=== PATIENT | male | born 1960 | race Caucasian/White ===

== ENCOUNTER 2021-03-03 09:52 | Emergency (ER) | payer BC, SELFPAY ==
--- NOTE | 2021-03-03 09:57 | ED.GENADULT ---
HPI - General Adult General Chief complaint: Skin/Abscess/Foreign Body Stated complaint: rash Time Seen by Provider: 03/03/21 09:57 Source: patient Mode of arrival: ambulatory Limitations: no limitations History of Present Illness HPI narrative: 60-year-old male patient presents to the [facility] with complaints of a rash for the past 4 days to bilateral arms, hands and groin area. Patient states he was working on taking out some brush about 4 days ago and states later on that night he developed a rash to the hands that was very itchy and is now spread to bilateral arms and groin area. Denies any chest pain, shortness of breath or trouble swallowing. Related Data Allergies Allergy/AdvReac Type Severity Reaction Status Date / Time NKDA Allergy Mild Uncoded 06/13/08 11:22 Review of Systems Review of Systems: Narrative: CONSTITUTIONAL: Denies fever, chills, or sweats. EYES: Denies visual changes, redness, or discharge. ENT: Denies rhinorrhea, congestion, sore throat, or otalgia. CARDIOVASCULAR: Denies chest pain, palpitations, or edema. RESPIRATORY: Denies cough or dyspnea. GASTROINTESTINAL: Denies abdominal pain, nausea, vomiting, or diarrhea. GENITOURINARY: Denies dysuria or hematuria. SKIN: Positive rash with itching to bilateral arms, hands and groin x4 days MUSCULOSKELETAL: Denies back pain, joint pain, or myalgia. NEUROLOGIC: Denies headache, numbness, or weakness. PSYCHIATRIC: Denies anxiety or depression. [facility] Surgical History Surgical History (Updated 03/03/21 @ 10:13 by LAVONNE Spivey) History of orthopedic surgery Right leg Comments At the time of my signature I agree with nursing past medical history, surgical, social, and family history. There is no relevant family history pertinent to the presenting complaint. Exam Narrative: Exam Narrative: GENERAL: Well-appearing, well-nourished, and in no acute distress. HEAD: Normocephalic, atraumatic. EYES: PERRLA and EOMI. ENT: Nares clear, no rhinorrhea or epistaxis. Mucous membranes moist. NECK: Supple. No lymphadenopathy CHEST: Clear to auscultation. No respiratory distress. HEART: Regular rate and rhythm. No murmur heard. Normal peripheral pulses. ABDOMEN: Soft, nontender, nondistended, normal active bowel sounds. EXTREMITIES: Normal range of motion. No edema. SKIN: Warm, dry, patient has rash noted to bilateral arms and hands. There is areas of erythemic blotchiness and areas of a linear erythremia with some scabbing in certain areas. There is no open wounds or drainage. NEURO: No focal deficits. Alert and oriented x3. Course Vital Signs Vital signs: Vital Signs Temperature 36.6 C 03/03/21 10:04 Pulse Rate 71 03/03/21 10:04 Respiratory Rate 16 03/03/21 10:04 Blood Pressure 168/89 H 03/03/21 10:04 Pulse Oximetry 98 03/03/21 10:04 Temperature 36.6 C 03/03/21 10:04 Pulse Rate 71 03/03/21 10:04 Respiratory Rate 16 03/03/21 10:04 Blood Pressure 168/89 H 03/03/21 10:04 Pulse Oximetry 98 03/03/21 10:04 Vital signs reviewed. The patient has been informed that they may have pre-hypertension or Hypertension based on a BP reading in the department. I recommend that the patient call the primary care provider listed on their discharge instructions or a physician of their choice this week to arrange follow up for further evaluation of possible pre-hypertension or Hypertension Medical Decision Making Differential Diagnosis Differential Diagnosis: Differential diagnosis: Contact dermatitis, poison gregorio, poison sumac, psoriasis, eczema, allergic reaction, drug reaction, scabies, tinea syphilis, lung disease, viral exanthema, pityriasis, erythema multiforme. Discussed with patient this appears that he has a contact dermatitis due to poison gregorio. Discussed with patient that we will treat him with oral steroids and some topical ointment to help with itching. Patient asking about a steroid shot. Discussed with patient that we can do
[2021-03-03 10:04] VITALS: BP 168/89; PULSE 71; RESP 16; TEMP 36.6; O2SAT 98
== END 2021-03-03 10:16 | disposition home or self-care (01) ==
PROVIDERS: Emergency Provider Nurse Practitioner Family
DX: L23.7 Allergic contact dermatitis due to plants, except food (principal)
CPT/HCPCS: 99203; G0463